=== PATIENT | male | born 1950 | race Caucasian/White ===

== ENCOUNTER 2018-12-21 18:48 | Emergency (ER) | payer SELFPAY ==
[~2018-12-21] VITALS: Ht 188 cm; Wt 72.7 kg
[2018-12-21 18:52] VITALS: Ht 188 cm; Wt 72.7 kg
--- NOTE | 2018-12-21 19:49 | NUR ---
DR FLOWERS NOTIFIED AND REVIEWED PT's BEHAVIOR AND ASSESSMENTRESULTS. PT IS A LOW RISK PER DR FLOWERS. DR FLOWERS STATED TO GIVE RESOURCES TO PT AT TIME OF DISCHARGE. NO FURTHER ORDERS AT THIS TIME. RESOURCES REVIEWED WITH PT AND HE VERBALIZED UNDERSTANDING.
[2018-12-21 22:55] VITALS: BP 168/73
== END 2018-12-21 23:04 ==
LOC: D.ER 18:48
DX: R45.851 Suicidal ideations (principal)